=== PATIENT | female | born 1985 | race Caucasian/White ===

== ENCOUNTER 2020-11-11 09:51 | Emergency (ER) | payer OTHER ==
[~2020-11-11] VITALS: Ht 165.1 cm; Wt 54.0 kg
[2020-11-11 10:01] VITALS: BP 120/71
== END 2020-11-11 10:01 ==
LOC: ER 09:54
DX: Z02.89 Encounter for other administrative examinations (principal); R53.1 Weakness; R19.7 Diarrhea, unspecified